=== PATIENT | female | born 1960 | race African-American/Black ===

== ENCOUNTER 2023-04-05 13:00 | Emergency (ER) | payer BC ==
[~2023-04-05] VITALS: Ht 165.1 cm; Wt 96.9 kg
[2023-04-05 13:35] VITALS: BP 145/75; PULSE 94; RESP 16; TEMP 98; O2SAT 98
[2023-04-05] MEDS: KETOROLAC TROMETH 60MG/2ML VIAL IM ONE (14:15)
[2023-04-05] MEDS ORDERED: TRAM50TA2 PO ×2 (15:14→15:15)
== END 2023-04-05 15:53 | disposition home or self-care (01) ==
LOC: ER 13:00
DX: S43.492A Other sprain of left shoulder joint, initial encounter (principal); Z79.899 Other long term (current) drug therapy; W01.0XXA Fall on same level from slipping, tripping and stumbling without subsequent striking against object, initial encounter; Y93.89 Activity, other specified; Y92.511 Restaurant or cafe as the place of occurrence of the external cause; Y99.8 Other external cause status
CPT/HCPCS: 73030; 96372; 99283; J1885